=== PATIENT | male | born 1985 | race Caucasian/White ===

== ENCOUNTER 2022-01-15 08:57 | Emergency (ER) | payer BC, OTHER ==
[2022-01-15 09:53] LABS: BASOPHILS % (AUTO) 0.1 %; HCT - HEMATOCRIT 46.8 % (42.0-52.0); HGB - HEMOGLOBIN 16.3 g/dL (14.0-18.0); LYMPHOCYTES # (AUTO) 1.2 10^3/uL (1.5-3.5); LYMPHOCYTES % (AUTO) 8.6 %; MEAN CORPUSCULAR HEMOGLOBIN 31.9 pg (27.0-31.0); MEAN CORPUSCULAR HGB CONC 34.8 g/dL (32.0-36.0); MEAN CORPUSCULAR VOLUME 91.6 fL (80.0-94.0); MEAN PLATELET VOLUME 9.6 fL (7.4-11.4); MONOCYTES # (AUTO) 0.6 10^3/uL (0.0-1.0); MONOCYTES % (AUTO) 4.7 %; NEUTROPHILS # (AUTO) 11.9 10^3/uL (1.5-6.6); NEUTROPHILS % (AUTO) 86.3 %; PLT - PLATELET COUNT 376 10^3/uL (130-450); RED BLOOD COUNT 5.11 10^6/uL (4.70-6.10); RED CELL DISTRIBUTION WIDTH 11.9 % (12.0-15.0); WHITE BLOOD COUNT 13.7 x10^3/uL (4.8-10.8)
--- NOTE | 2022-01-15 10:17 | ED Physician Documentation ---
PD HPI NVD - Stated complaint Stated Complaint: DIZZY/VOMITING - Chief complaint Chief Complaint: Abd Pain - History obtained from History obtained from: Patient - History of Present Illness Timing - onset: Last night (onset about 9:30 pm, abrupt vertigo when went to stand up. Marked spinning with nasuea and vomiting resulting. He feels better lying/head still, but marked vertigo with head movement and has nausea and vomiting. Feeling generally weak this morning. No urination today. No headache.) Timing - duration: Hours (12) Timing - details: Abrupt onset, Still present Associated symptoms: Dizzy (distinct horizontal vertigo clockwise.). No: Fever, Abdominal pain, Near syncope / syncope, Loss of appetite Contributing factors: Other (denies head injury.). No: Sick contact, Bad food, Travel, Alcohol use, Diabetes Improved by: Laying still Worsened by: Moving Similar symptoms before: Has not had sx before Recently seen: Clinic (went to chiropractor for back pain early in week. No symptoms at that time. Denies headache nor notable neck manipulation.) Review of Systems Constitutional: denies: Fever, Chills Eyes: denies: Loss of vision, Decreased vision, Photophobia Nose: reports: Rhinorrhea / runny nose, Congestion, Sinus pressure / pain (about 1 1/2 weeks ago with URI symptoms and sinus pressure, with those having improved and minimal the past 2 days.) Cardiac: denies: Chest pain / pressure, Palpitations Respiratory: denies: Dyspnea, Cough Skin: denies: Rash Neurologic: denies: Focal weakness, Numbness, Confused, Headache, Head injury PD PAST MEDICAL HISTORY - Past Medical History Cardiovascular: None Respiratory: None Neuro: None Endocrine/Autoimmune: None HEENT: None - Present Medications Home Medications: Ambulatory Orders Medication Instructions Recorded Confirmed Meclizine HCl [Motion Sickness] 25 mg PO Q6H PRN #30 tablet 01/15/22 Ondansetron Odt [Zofran] 4 mg TL Q6H PRN #10 tablet 01/15/22 dexAMETHasone [Decadron] 4 mg PO DAILY #5 tablet 01/15/22 - Allergies Allergies/Adverse Reactions: Allergies Allergy/AdvReac Type Severity Reaction Status Date / Time No Known Drug Allergies Allergy Verified 01/15/22 09:40 PD ED PE NORMAL - Vitals Vital signs reviewed: Yes - General General: Alert and oriented X 3, Well developed/nourished, Other (appears uncomfortable with movement, guarding ROM of the head. ) - HEENT HEENT: PERRL, EOMI (horizontal nystagmus to the right. fundi appear normal. 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, No motor deficit, No sensory deficit, Normal speech Eye Opening: Spontaneous Motor: Obeys Commands Verbal: Oriented GCS Score: 15 Results - Vitals Vitals: Vital Signs - 24 hr 01/15/22 01/15/22 01/15/22 09:27 11:39 11:53 Temperature 36.9 C 36.5 C 36.1 C L Heart Rate 100 67 100 Respiratory 20 15 20 Rate Blood Pressure 136/90 H 111/76 125/81 H O2 Saturation 99 96 99 01/15/22 12:25 Temperature Heart Rate 80 Respiratory 18 Rate Blood Pressure 122/75 O2 Saturation 99 Oxygen O2 Source Room air - Labs Labs: Laboratory Tests 01/15/22 01/15/22 09:49 09:49 WBC 13.7 H RBC 5.11 Hgb 16.3 Hct 46.8 MCV 91.6 MCH 31.9 H MCHC 34.8 RDW 11.9 L Plt Count 376 MPV 9.6 Neut # (Auto) 11.9 H Lymph # (Auto) 1.2 L [place] # (Auto) 0.6 Eos # (Auto) 0.0 Baso # (Auto) 0.0 Absolute Nucleated RBC 0.00 Nucleated RBC % 0.0 Sodium 137 Potassium 4.1 Chloride 100 L Carbon Dioxide 25 Anion Gap 12.0 BUN 13 Creatinine 1.1 Estimated GFR (MDRD) 76 L Glucose 142 H Calcium 9.9 Total Bilirubin 1.2 H AST 38 ALT 101 H Alkaline Phosphatase 96 Total Protein 8.1 Albumin 4.8 Globulin 3.3 Albumin/Globulin Ratio 1.5 Lipase 32 PD MEDICAL DECISION MAKING - ED course Complexity details: re-evaluated patient (improved with diazepam and Meclizine, both targeted to the vertigo. ), considered differential (seems peripheral vertigo with dampening on holding still, distinct vertigo, normal neuro otherwise, and horizontal nystagmus. Presume relates to URI last week and subsequent inner ear dysfunction triggered by head movement. ), d/w patient Departure - Departure Disposition: 01 Home, Self Care Clinical Impression: Vertigo Nausea & vomiting Qualifiers: Vomiting type: unspecified Qualified Code(s): R11.2 - Nausea with vomiting, unspecified Acute peripheral vestibulopathy Qualifiers: Laterality: unspecified laterality Qualified Code(s): H81.20 - Vestibular neuronitis, unspecified ear Condition: Stable Record reviewed to determine appropriate education?: Yes Instructions: ED Vertigo Unspecified Follow-Up: Keyon Alcala MD [Primary Care Provider] - Prescriptions: dexAMETHasone [Decadron] 4 mg PO DAILY #5 tablet Meclizine HCl [Motion Sickness] 25 mg PO Q6H PRN #30 tablet PRN Reason: Vertigo Ondansetron Odt [Zofran] 4 mg TL Q6H PRN #10 tablet PRN Reason: Nausea / Vomiting Comments: This sounds like a and disruption of your in your ear causing the vertigo and profound nausea and vomiting. Move slow and minimal head movement over the next few days. It is typically relates to some inflammation and fluid buildup in the inner ear. I do not see signs of a middle ear infection. This is less likely bacterial. I would not see a role for antibiotics at this time. We would treat it with Decadron steroid for inflammation and meclizine 3 times daily for the next several days to week. Add extra dose if needed for the dizziness. This will also act as a antihistamine. Add ondansetron if needed for nausea. Recheck if not improved well over the next few days and return if worsening. I sent your prescription to [facility] pharmacy. Discharge Date/Time: 01/15/22 12:27
[2022-01-15 10:18] LABS: ALBUMIN 4.8 g/dL (3.2-5.5); ALBUMIN/GLOBULIN RATIO 1.5 (1.0-2.2); BILIRUBIN,TOTAL 1.2 mg/dL (0.2-1.0); CALCIUM 9.9 mg/dL (8.5-10.3); CREATININE 1.1 mg/dL (0.6-1.2); POTASSIUM 4.1 mmol/L (3.5-5.0); TOTAL PROTEIN 8.1 g/dL (6.7-8.2)
[2022-01-15] MEDS ORDERED: SODIUM CHLORIDE 0.9% 1,000 ML IV STA (10:37)
[2022-01-15] MEDS ORDERED: DEXAMETHASONE 10 MG/ML VIAL IVP STA (10:37)
[2022-01-15] MEDS ORDERED: MECLIZINE 12.5 MG TABLET PO STA (10:37)
[2022-01-15] MEDS ORDERED: diazePAM INJ 5 MG/ML SYRINGE IVP STA (10:37)
[2022-01-15] MEDS ORDERED: KETOROLAC 15 MG/ML VIAL IVP STA (10:38)
[2022-01-15 12:27] VITALS: BP 122/75
== END 2022-01-15 12:27 | disposition home or self-care (01) ==
LOC: ED 08:57
DX: H81.20 Vestibular neuronitis, unspecified ear (principal); R11.2 Nausea with vomiting, unspecified
CPT/HCPCS: 36415; 80053; 83690; 85025; 96374; 96375; 99283; 99284; A9270